=== PATIENT | female | born 1990 | race Caucasian/White ===

== ENCOUNTER 2017-08-23 17:59 | Emergency (ER) | payer OTHER ==
[~2017-08-23] VITALS: Ht 154.9 cm; Wt 60.8 kg
== END 2017-08-23 20:57 | disposition home or self-care (01) ==
LOC: ER 17:59
DX: H65.191 Other acute nonsuppurative otitis media, right ear (principal)

== ENCOUNTER 2018-01-15 11:55 | Emergency (ER) | payer OTHER ==
[~2018-01-15] VITALS: Ht 165.1 cm; Wt 61.2 kg
== END 2018-01-15 14:22 | disposition home or self-care (01) ==
LOC: ER 11:55
DX: H00.12 Chalazion right lower eyelid (principal)

== ENCOUNTER 2018-08-05 17:10 | Emergency (ER) | payer OTHER ==
[~2018-08-05] VITALS: Ht 160 cm; Wt 54.4 kg
== END 2018-08-05 19:28 | disposition home or self-care (01) ==
LOC: ER 17:10
DX: J35.01 Chronic tonsillitis (principal)